=== PATIENT | male | born 1990 | race Caucasian/White ===

== ENCOUNTER → 2019-08-03 | Outpatient (CLI) | payer OTHER | LOC: MRI 10:48 | DX: M47.26 Other spondylosis with radiculopathy, lumbar region (principal); M51.16 Intervertebral disc disorders with radiculopathy, lumbar region; M51.27 Other intervertebral disc displacement, lumbosacral region ==

== ENCOUNTER → 2019-09-15 | Outpatient (CLI) | payer OTHER | LOC: MRI 10:22 | DX: M47.27 Other spondylosis with radiculopathy, lumbosacral region (principal); M51.16 Intervertebral disc disorders with radiculopathy, lumbar region; M51.17 Intervertebral disc disorders with radiculopathy, lumbosacral region; M48.07 Spinal stenosis, lumbosacral region ==

== ENCOUNTER 2019-12-03 11:06 | Emergency (ER) | payer OTHER ==
[~2019-12-03] VITALS: Ht 185.4 cm; Wt 145.2 kg
[2019-12-03 11:24] LABS: URINE BILIRUBIN 2+ (Negative); URINE BLOOD NEGATIVE (Negative); URINE CLARITY CLEAR; URINE COLOR YELLOW; URINE GLUCOSE-RANDOM* NEGATIVE (Negative); URINE KETONES 3+ (Negative); URINE LEUKOCYTES-REFLEX NEGATIVE (Negative); URINE NITRITE-REFLEX NEGATIVE (Negative); URINE PROTEIN (DIPSTICK) NEGATIVE (Negative); URINE SPECIFIC GRAVITY >= 1.030 (1.005-1.035)
[2019-12-03 11:26] LABS: ICTOTEST (BILI CONFIRMATORY) Positive (Negative)
[2019-12-03 11:35] LABS: ABSOLUTE NEUTROPHILS 2.3 thou/uL (1.4-8.2); BASOPHILS 1.5 % (0.0-2.0); EOSINOPHILS 1.9 % (0.0-3.0); HEMATOCRIT 44.7 % (42.0-52.0); HEMOGLOBIN 15.1 gm/dL (14.0-18.0); LYMPHOCYTES 37.8 % (24.0-44.0); MCH 29.4 pg (26.0-34.0); MCHC 33.8 g/dL (28.0-37.0); MONOCYTES 8.7 % (1.0-8.0); PLATELET COUNT 253 thou/uL (150-400); POLYS 50.1 % (36.0-66.0); RBC 5.14 mil/uL (4.50-6.00); RDW 13.1 % (10.5-14.5); WBC 4.6 thou/uL (4.0-11.0)
[2019-12-03 11:42] LABS: CALCIUM 9.2 mg/dL (8.5-10.1); CREATININE 1.1 mg/dL (0.7-1.3); POTASSIUM 3.7 mmol/L (3.5-5.1)
[2019-12-03 11:48] LABS: TOTAL BILIRUBIN 0.7 mg/dL (<0.1-1.0)
[2019-12-03] MEDS ORDERED: ZOFRAN ODT4 MG DISSOLVE (16:31)
[2019-12-03 16:57] VITALS: BP 94/47
== END 2019-12-03 17:01 | disposition home or self-care (01) ==
LOC: ER 11:06
PROVIDERS: Physician Assistant
DX: E86.0 Dehydration (principal); R11.0 Nausea; R07.89 Other chest pain; R42 Dizziness and giddiness; R10.13 Epigastric pain; E66.01 Morbid (severe) obesity due to excess calories; Z98.84 Bariatric surgery status; Z88.2 Allergy status to sulfonamides